=== PATIENT | male | born 1945 | race Caucasian/White ===

== ENCOUNTER → 2017-09-22 | Outpatient (CLI) | payer OTHER, MEDICARE | LOC: BHFA 11:30 | PROVIDERS: ATTEND Internal Medicine Cardiovascular Disease | DX: R06.02 Shortness of breath (principal) ==

== ENCOUNTER → 2017-09-25 | Outpatient (CLI) | payer OTHER, MEDICARE | LOC: BHFA 15:30 | PROVIDERS: ATTEND Internal Medicine Interventional Cardiology | DX: R60.9 Edema, unspecified (principal) ==

== ENCOUNTER → 2017-10-20 | Outpatient (CLI) | payer OTHER, MEDICARE | LOC: BHFA 09:00 | PROVIDERS: ATTEND Internal Medicine Cardiovascular Disease | DX: I25.10 Atherosclerotic heart disease of native coronary artery without angina pectoris (principal) | CPT/HCPCS: 78452; 93017; A9500 ==

== ENCOUNTER 2018-10-06 14:30 | Inpatient (IN) | payer OTHER, MEDICARE ==
[~2018-10-06 14:30] MED LIST: IOPAMIDOL (ISOVUE-300) 100 ML BTL ONE
[2018-10-06] MEDS ORDERED: NS 1,000 ML IV ONE (15:12)
--- NOTE | 2018-10-06 15:12 | EDPHY ---
H & P Stated Complaint: N/V Time Seen by Provider: 10/06/18 15:00 HPI/ROS: CHIEF COMPLAINT: Vomiting, acute renal failure HISTORY OF PRESENT ILLNESS: The patient is referred to the emergency department from the acute care nurse practitioner secondary to acute renal failure. The patient has a history of mild ulcerative colitis and reported history of sprue. The patient has had decreased appetite and nausea for the past month. The patient saw Gastroenterology head was noted to have acute renal failure. The patient does have a history of BPH but denies urinary symptoms. He reports what he perceives to be normal urine output. Patient takes no medications for high blood pressure. He denies prior history of renal disease. The patient does report weight loss and early satiety. REVIEW OF SYSTEMS: A comprehensive 10 point review of systems is otherwise negative aside from elements mentioned in the history of present illness. Source: Patient Exam Limitations: No limitations - Medical/Surgical History Other PMH: ulcerative colitis , IBS, low testosterone/protein, adrenal fatigue, severe wheat allergy, osteoporosis , hypo thyroidism, BPH, CAD, shingles - Social History Smoking Status: Never smoked - Physical Exam Exam: General Appearance: Thin male, no acute distress Eyes: Pupils equal and round no pallor or injection ENT, Mouth: Mucous membranes moist Respiratory: There are no retractions, lungs are clear to auscultation Cardiovascular: Regular rate and rhythm Gastrointestinal: Abdomen is soft and nontender, no masses, bowel sounds normal Neurological: 5/5 strength all 4 extremities Skin: Warm and dry, no rashes Musculoskeletal: Neck is supple nontender Extremities: symmetrical, full range of motion Constitutional: Initial Vital Signs Temperature (C) 36.6 C 10/06/18 14:32 Heart Rate 54 L 10/06/18 14:32 Respiratory Rate 16 10/06/18 14:32 Blood Pressure 128/76 H 10/06/18 14:32 O2 Sat (%) 96 10/06/18 14:32 O2 Delivery Mode Room Air Allergies/Adverse Reactions: No Known Allergies Allergy (Unverified 10/06/18 14:32) Home Medications: Medication Instructions Recorded Acetaminophen [Tylenol 325mg (*)] 650 mg PO DAILY PRN 10/06/18 Baclofen/Cyclo 1 supp UT Q3D@21 10/06/18 Cholecalciferol Vit D3 [Vitamin D3 10,000 units PO DAILY 10/06/18 (*)] Compounded Cream 1 elie TP DAILY 10/06/18 Cyanocobalamin [Vitamin B12 (*)] 5,000 mcg PO DAILY 10/06/18 Denosumab [Prolia] 60 mg SQ Q180D 10/06/18 Dicyclomine [Bentyl 20 MG (*)] 20 mg PO DAILY PRN 10/06/18 Herbals/Supplements -Info Only 1 ea PO DAILY 10/06/18 Ibuprofen [Motrin (*)] 200 mg PO DAILY PRN 10/06/18 Levothyroxine [Synthroid 75 mcg 75 mcg PO DAILY06 10/06/18 (*)] Lipase 24,000/Amylase/Protease 1 cap PO 5XD 10/06/18 [Creon 24 (*)] Ondansetron Odt [Zofran Odt 4 mg 4 mg PO Q4 10/06/18 (*)] Pantoprazole Sodium [Protonix 40mg 40 mg PO DAILY 10/06/18 (*)] Rapaflow 3 mg PO EVERY OTHER DAY 10/06/18 metroNIDAZOLE 0.75% [Metrocream 1 elie TP EVERY OTHER DAY 10/06/18 0.75% (RX)] Medical Decision Making ED Course/Re-evaluation: Patient had an IV established. The patient is hemodynamically stable. He received a L of normal saline. The patient provided both a urine and stool sample. Patient's creatinine is noted to be 2.3. Dr. Medina contacted the emergency department and requested the patient be admitted to the hospitalist service. They do plan to do endoscopy tomorrow. Bladder scan has been ordered after urination in the ED. Consultation was made with the hospitalist service. The patient will be admitted by Dr. Dueñas. 4:15 p.m.: Patient's bladder scan demonstrates no evidence of acute urinary retention. The patient is receiving IV fluids for acute renal failure. Differential Diagnosis: Differential diagnosis considered includes acute renal failure, hyperkalemia, upper GI bleed, lower GI bleed, intra-abdominal malignancy. - Data Points Laboratory Results: Laboratory Results 10/06/18 15:07 10/06/18 15:07 10/06/18 10/06/18 10/06/18 15:07 15:07 11:50 WBC 5.44 10^3/uL 10^3/uL (3.80-9.50) RBC 3.78 10^6/uL L 10^6/uL (4.40-6.38) Hgb 12.8 g/dL L g/dL (13.7-17.5) Hct 38.0 % L % (40.0-51.0) MCV 100.5 fL H fL (81.5-99.8) MCH 33.9 pg pg (27.9-34.1) MCHC 33.7 g/dL g/dL (32.4-36.7) RDW 12.6 % % (11.5-15.2) Plt Count 246 10^3/uL 10^3/uL (150-400) MPV 11.0 fL fL (8.7-11.7) Neut % (Auto) 67.2 % % (39.3-74.2) Lymph % (Auto) 19.3 % % (15.0-45.0) [place] % (Auto) 10.5 % % (4.5-13.0) Eos % (Auto) 2.0 % % (0.6-7.6) Baso % (Auto) 0.6 % % (0.3-1.7) Nucleat RBC Rel Count 0.0 % % (0.0-0.2) Absolute Neuts (auto) 3.66 10^3/uL 10^3/uL (1.70-6.50) Absolute Lymphs (auto) 1.05 10^3/uL 10^3/uL (1.00-3.00) Absolute Monos (auto) 0.57 10^3/uL 10^3/uL (0.30-0.80) Absolute Eos (auto) 0.11 10^3/uL 10^3/uL (0.03-0.40) Absolute Basos (auto) 0.03 10^3/uL 10^3/uL (0.02-0.10) Absolute Nucleated RBC 0.00 10^3/uL 10^3/uL (0-0.01) Immature Gran % 0.4 % % (0.0-1.1) Immature Gran # 0.02 10^3/uL 10^3/uL (0.00-0.10) Sodium 132 mEq/L L mEq/L (135-145) Potassium 3.9 mEq/L mEq/L (3.5-5.2) Chloride 96 mEq/L L mEq/L (97-110) Carbon Dioxide 24 mEq/l mEq/l (22-31) Anion Gap 12 mEq/L mEq/L (6-14) BUN 31 mg/dL H mg/dL (7-23) Creatinine 2.3 mg/dL H mg/dL (0.7-1.3) POC Creatinine 2.8 mg/dL H mg/dL (0.7-1.3) Estimated GFR 28 Glucose 67 mg/dL L mg/dL (70-100) Calcium 9.9 mg/dL mg/dL (8.5-10.4) Total Bilirubin 1.0 mg/dL mg/dL (0.1-1.4) Conjugated Bilirubin 0.4 mg/dL mg/dL (0.0-0.5) Unconjugated Bilirubin 0.6 mg/dL mg/dL (0.0-1.1) AST 34 IU/L IU/L (17-59) ALT 20 IU/L L IU/L (21-72) Alkaline Phosphatase 62 IU/L IU/L (38-126) Total Protein 6.3 g/dL g/dL (6.3-8.2) Albumin 3.6 g/dL g/dL (3.5-5.0) Lipase 129 IU/L IU/L (23-300) 10/06/18 10/06/18 11:44 11:34 WBC RBC Hgb Hct MCV MCH MCHC RDW Plt Count MPV Neut % (Auto) Lymph % (Auto) [place] % (Auto) Eos % (Auto) Baso % (Auto) Nucleat RBC Rel Count Absolute Neuts (auto) Absolute Lymphs (auto) Absolute Monos (auto) Absolute Eos (auto) Absolute Basos (auto) Absolute Nucleated RBC Immature Gran % Immature Gran # Sodium Potassium Chloride Carbon Dioxide Anion Gap BUN Creatinine POC Creatinine TNP 2.7 mg/dL H mg/dL (0.7-1.3) Estimated GFR Glucose Calcium Total Bilirubin Conjugated Bilirubin Unconjugated Bilirubin AST ALT Alkaline Phosphatase Total Protein Albumin Lipase Medications Given: Discontinued Medications Sodium Chloride (Ns) 1,000 mls @ 0 mls/hr IV EDNOW ONE; Wide Open PRN Reason: Protocol Stop: 10/06/18 15:13 Last Admin: 10/06/18 15:25 Dose: 1,000 mls Point of Care Test Results: Chemistry 10/06/18 10/06/18 10/06/18 11:50 11:44 11:34 POC Creatinine 2.8 mg/dL H mg/dL TNP 2.7 mg/dL H mg/dL (0.7-1.3) (0.7-1.3) Departure - Departure Disposition: [facility] Acute Clinical Impression: Acute renal failure (ARF), Dehydration, Early satiety, Ulcerative colitis Condition: Good
[2018-10-06 15:26] LABS: PLATELET COUNT 246 10^3/uL (150-400)
[2018-10-06] MEDS ORDERED: ACETAMINOPHEN 325 MG TAB PO PRN (16:12)
[2018-10-06] MEDS ORDERED: ONDANSETRON DISINTEGRATING 4 MG TAB PO PRN (16:12)
[2018-10-06] MEDS ORDERED: ONDANSETRON 4 MG/2 ML VIAL IVP PRN (16:12)
--- NOTE | 2018-10-06 17:25 | PDGENHP ---
History and Physical - Chief Complaint Elevated Cr, Nausea - History of Present Illness Stanley Owen is a 73 yo M with a PMHx of remote hx of UC, hypothyroidism, hypogonadism who presents to [facility] for nausea, vomiting, and elevated Cr. He reports that for the past month he has had decreased appetite and PO intake due to nausea. For the past few days, he reports barely being able to drink water without experiencing significant nausea. He has lost 7 lbs in past month due to this. He denies any night sweats. He denies dysphagia, abdominal pain, constipation. He reports having episode of diarrhea earlier today thought to be due to PO contrast for CT but none previously. He was scheduled to have outpatient EGD on 10/20 with of the [facility] for further evaluation. He was sent for a CT scan w/ IVC however Cr was found to be 2.8 and noncontrasted study was ordered. History Information - Allergies/Home Medication List Allergies/Adverse Reactions: No Known Allergies Allergy (Unverified 10/06/18 14:32) Home Medications: Acetaminophen [Tylenol 325mg (*)] 650 mg PO DAILY PRN 10/06/18 [Last Taken Unknown] Baclofen/Cyclo 1 supp PA Q3D@21 10/06/18 [Last Taken Unknown] Cholecalciferol Vit D3 [Vitamin D3 (*)] 10,000 units PO DAILY 10/06/18 [Last Taken 10/05/18] Compounded Cream 1 elie TP DAILY 10/06/18 [Last Taken 10/05/18] Cyanocobalamin [Vitamin B12 (*)] 5,000 mcg PO DAILY 10/06/18 [Last Taken ] Denosumab [Prolia] 60 mg SQ Q180D 10/06/18 [Last Taken Unknown] Dicyclomine [Bentyl 20 MG (*)] 20 mg PO DAILY PRN 10/06/18 [Last Taken Unknown] Herbals/Supplements -Info Only 1 ea PO DAILY 10/06/18 [Last Taken 10/05/18] Ibuprofen [Motrin (*)] 200 mg PO DAILY PRN 10/06/18 [Last Taken Unknown] Levothyroxine [Synthroid 75 mcg (*)] 75 mcg PO DAILY06 10/06/18 [Last Taken ] Lipase 24,000/Amylase/Protease [Creon 24 (*)] 1 cap PO 5XD 10/06/18 [Last Taken 10/04/18] Ondansetron Odt [Zofran Odt 4 mg (*)] 4 mg PO Q4 10/06/18 [Last Taken 10/06/18 06:00] Pantoprazole Sodium [Protonix 40mg (*)] 40 mg PO DAILY 10/06/18 [Last Taken ] Rapaflow 3 mg PO EVERY OTHER DAY 10/06/18 [Last Taken Unknown] metroNIDAZOLE 0.75% [Metrocream 0.75% (RX)] 1 elie TP EVERY OTHER DAY 10/06/18 [ Last Taken Unknown] I have personally reviewed and updated: family history, medical history, social history, surgical history - Past Medical History Additional medical history: Hypothyroidism, Hypogonadism - Surgical History Reports: no pertinent surgical hx - Family History Positive for: non-pertinent - Social History Smoking Status: Never smoked Review of Systems Review of Systems: ROS: 10pt was reviewed & negative except for what was stated in HPI & below Physical Exam Physical Exam: Temp Pulse Resp BP Pulse Ox 36.6 C 60 18 122/70 H 97 10/06/18 14:32 10/06/18 16:00 10/06/18 16:00 10/06/18 16:00 10/06/18 16:00 Constitutional: no apparent distress Eyes: PERRL Ears, Nose, Mouth, Throat: moist mucous membranes Cardiovascular: regular rate and rhythym Respiratory: no respiratory distress Gastrointestinal: normoactive bowel sounds, soft, non-tender abdomen Skin: warm Musculoskeletal: full muscle strength Neurologic: AAOx3 Psychiatric: interacting appropriately Lab Data & Imaging Review 10/06/18 15:07 10/06/18 15:07 WBC 5.44 10^3/uL (3.80-9.50) 10/06/18 15:07 RBC 3.78 10^6/uL (4.40-6.38) L 10/06/18 15:07 Hgb 12.8 g/dL (13.7-17.5) L 10/06/18 15:07 Hct 38.0 % (40.0-51.0) L 10/06/18 15:07 MCV 100.5 fL (81.5-99.8) H 10/06/18 15:07 MCH 33.9 pg (27.9-34.1) 10/06/18 15:07 MCHC 33.7 g/dL (32.4-36.7) 10/06/18 15:07 RDW 12.6 % (11.5-15.2) 10/06/18 15:07 Plt Count 246 10^3/uL (150-400) 10/06/18 15:07 MPV 11.0 fL (8.7-11.7) 10/06/18 15:07 Neut % (Auto) 67.2 % (39.3-74.2) 10/06/18 15:07 Lymph % (Auto) 19.3 % (15.0-45.0) 10/06/18 15:07 [place] % (Auto) 10.5 % (4.5-13.0) 10/06/18 15:07 Eos % (Auto) 2.0 % (0.6-7.6) 10/06/18 15:07 Baso % (Auto) 0.6 % (0.3-1.7) 10/06/18 15:07 Nucleat RBC Rel Count 0.0 % (0.0-0.2) 10/06/18 15:07 Absolute Neuts (auto) 3.66 10^3/uL (1.70-6.50) 10/06/18 15:07 Absolute Lymphs (auto) 1.05 10^3/uL (1.00-3.00) 10/06/18 15:07 Absolute Monos (auto) 0.57 10^3/uL (0.30-0.80) 10/06/18 15:07 Absolute Eos (auto) 0.11 10^3/uL (0.03-0.40) 10/06/18 15:07 Absolute Basos (auto) 0.03 10^3/uL (0.02-0.10) 10/06/18 15:07 Absolute Nucleated RBC 0.00 10^3/uL (0-0.01) 10/06/18 15:07 Immature Gran % 0.4 % (0.0-1.1) 10/06/18 15:07 Immature Gran # 0.02 10^3/uL (0.00-0.10) 10/06/18 15:07 Sodium 132 mEq/L (135-145) L 10/06/18 15:07 Potassium 3.9 mEq/L (3.5-5.2) 10/06/18 15:07 Chloride 96 mEq/L (97-110) L 10/06/18 15:07 Carbon Dioxide 24 mEq/l (22-31) 10/06/18 15:07 Anion Gap 12 mEq/L (6-14) 10/06/18 15:07 BUN 31 mg/dL (7-23) H 10/06/18 15:07 Creatinine 2.3 mg/dL (0.7-1.3) H 10/06/18 15:07 POC Creatinine 2.8 mg/dL (0.7-1.3) H 10/06/18 11:50 Estimated GFR 28 10/06/18 15:07 Glucose 67 mg/dL (70-100) L 10/06/18 15:07 Serum Osmolality 292 mosmo/kg (280-297) 10/06/18 15:07 Calcium 9.9 mg/dL (8.5-10.4) 10/06/18 15:07 Total Bilirubin 1.0 mg/dL (0.1-1.4) 10/06/18 15:07 Conjugated Bilirubin 0.4 mg/dL (0.0-0.5) 10/06/18 15:07 Unconjugated Bilirubin 0.6 mg/dL (0.0-1.1) 10/06/18 15:07 AST 34 IU/L (17-59) 10/06/18 15:07 ALT 20 IU/L (21-72) L 10/06/18 15:07 Alkaline Phosphatase 62 IU/L (38-126) 10/06/18 15:07 Total Protein 6.3 g/dL (6.3-8.2) 10/06/18 15:07 Albumin 3.6 g/dL (3.5-5.0) 10/06/18 15:07 Lipase 129 IU/L (23-300) 10/06/18 15:07 Ur Random Creatinine 101.1 mg/dL 10/06/18 15:16 Ur Random Sodium 23 mEq/L (30-90) L 10/06/18 15:16 Assessment & Plan Assessment: Acute renal failure (ARF) (Acute) - Cr 2.8 earlier today, 2.3 on admission - Likely prerenal in setting of significantly decreased PO intake - S/p 1L IVF in ED, will continue mIVF overnight @ 150 ml/hr - FENa ordered - CT scan from earlier today shows normal kidneys, no hydronephrosis/hydroureter - Will order UA as well - Continue to monitor BMP, I/O, avoid nephrotoxic agents - If not improving overnight with IVF, consult Nephrology in the AM Nausea - Duration 1 month with PO intake - Denies dysphagia - Following with GI of the [facility] - Plan for EGD in the AM for further evaluation, unsure if plan for colonoscopy as well (patient and would like both to be performed at same time) - NPO at midnight - Anti-emetics PRN - IVF overnight as above Hyponatremia - Na 132 on admission - In setting of decreased PO intake - IVF as above - Repeat Na in the AM, avoid overcorrection (>8 meq in 24 hours) Hypothyroidism - Continue home Synthroid Hypogonadism - Continue home Testostetone FEN: IVF, NPO at midnight Code: FULL DVT PPx: SubQ Heparin Dispo: Admit to Medicine
[2018-10-06] MEDS ORDERED: DICYCLOMINE 20 MG TAB PO PRN (17:31)
[2018-10-06] MEDS: NS 1,000 ML IV SCH ×2 (17:36→21:26)
[2018-10-06] MEDS ORDERED: LIPASE 24,000/AMYLASE/PROTEASE (CREON) 1 CAP PO PRN (17:40)
[2018-10-06] MEDS ORDERED: LIPASE 24,000/AMYLASE/PROTEASE (CREON) 1 CAP PO SCH (18:00)
[2018-10-06] MEDS: LIPASE 24,000/AMYLASE/PROTEASE (CREON) 1 CAP PO SCH (19:12)
[2018-10-06] MEDS ORDERED: BACLOFEN PR SCH (21:00)
[2018-10-06] MEDS ORDERED: CYCLO PR SCH (21:00)
[2018-10-06] MEDS: HEPARIN 5,000 UNIT/0.5 ML INJ SC SCH (21:25)
[2018-10-07] MEDS: HEPARIN 5,000 UNIT/0.5 ML INJ SC SCH ×3 (05:27→21:24)
[2018-10-07] MEDS: NS 1,000 ML IV SCH ×3 (05:27→18:38)
[2018-10-07] MEDS: LEVOTHYROXINE 75 MCG TAB PO SCH (05:27)
[2018-10-07] MEDS: CHOLECALCIFEROL VIT D3 2,000 UNITS TAB/CAP PO SCH (08:02)
[2018-10-07] MEDS: PANTOPRAZOLE SODIUM 40 MG TAB PO SCH (08:04)
[2018-10-07] MEDS: LIPASE 24,000/AMYLASE/PROTEASE (CREON) 1 CAP PO SCH ×3 (08:10→17:23)
[2018-10-07] MEDS ORDERED: CHOLECALCIFEROL VIT D3 1,000 UNITS TAB PO SCH (09:00)
--- NOTE | 2018-10-07 11:32 | HOSPPROG ---
Hospitalist Progress Note Assessment/Plan: 73 yo M w remote UC, colonic stricture here w 1 monyh nauasea and MARGARITA MARGARITA: suspected pre renal w subsequent ATN (low Rogelio, history) continue IVF support follow bid this precludes colon prep nausea: ct unremarkable for cause (images inter by me) mild anemia noted ? PUD w GOO needs egd proph: sc heparin colonic stricture: unlikely cause of currrent situation dispo: inpt Subjective: case dw dr bautista. 's ?'s answered Objective: Vital Signs Temp Pulse Resp BP Pulse Ox 36.6 C 54 L 14 105/63 97 10/07/18 07:56 10/07/18 07:56 10/07/18 07:56 10/07/18 07:56 10/07/18 07:56 Laboratory Results 10/07/18 04:33 10/06/18 10/07/18 10/08/18 05:59 05:59 05:59 Output Total 100 Balance -100 - Physical Exam Constitutional: no apparent distress, appears nourished Eyes: PERRL, anicteric sclera Ears, Nose, Mouth, Throat: moist mucous membranes, hearing normal Cardiovascular: regular rate and rhythym, no murmur, rub, or gallop, No tachycardia Respiratory: no respiratory distress, no rales or rhonchi Gastrointestinal: normoactive bowel sounds, soft, non-tender abdomen, no palpable masses, No guarding, No rebound Genitourinary: no bladder fullness, No barton in urethra Skin: warm, normal color, no induration Musculoskeletal: full muscle strength ICD10 Worksheet Patient Problems: Problems Problem Status Onset Acute renal failure (ARF) Acute Dehydration Acute Early satiety Acute Ulcerative colitis Acute
--- NOTE | 2018-10-07 14:24 | PDMN ---
Medical Necessity Medical necessity: Pt meets IP criteria per & KASEY M-326; est los >2 mn for eval/tx of acute renal failure w/hyponatremia & decreased PO intake w/ongoing nausea; requiring further workup/monitoring & aggressive IVFs (150 mls/hr); H&P & order 10/06/17
--- NOTE | 2018-10-07 14:49 | ASMTCMCOM ---
CM Note CM Note Notes: 10/07/2018 Case Management Note Pt admitted for dehydration and renal failure. There are no therapy evals ordered at this time. Met w/pt and S[place] [phone] (cell). Preferred phone number is the home number [phone]. Pt lives independently with his in his own home. They have not needed to hire out housekeeping or lawn care yet. Both are able to drive and both cook meals. Pt has not needed a home care agency or had a stay in a correction facility in the past. PCP is dr. Dasia Chopra with [facility]. Case Management d/c poc: independent with follow up as directed. Case Management available if needs change. Date Signed: 10/07/2018 02:48 PM Electronically Signed By:Michelle Fonseca RN
--- NOTE | 2018-10-07 17:09 | PDCONSULT ---
Healthcare Applications Analyst Note: [email or web address] p: f: REFERRING PHYSICIAN: I was asked to see the patient in consultation by Dr. Juan Gayle for a chief complaint of decreased appetite, early satiety, nausea. HISTORY OF PRESENT ILLNESS: Stanley Owen is a 73-year-old male with untreated inflammatory bowel disease (Ulcerative jejunitis vs small bowel Crohns disease and/or colitis) presenting with acute kidney injury. A pre-CT scan creatinine was noted to be newly elevated at 2.8 and he was admitted for acute renal insufficiency and being treated as such. He is a patient of Dr. Sacha Medina and was recently seen on 09/27/2018 for a myriad of symptoms that included loss of appetite, 10 pound weight loss, nausea , vomiting, increased belching and continued diarrhea. He endorses being given a diagnosis of ulcerative colitis in 1970 and was initially treated with steroids but currently treat all of his symptoms with supplements. He also has a variety of food allergies for which she avoids eating these foods as spicy foods really increase his symptoms. The patient has had several years of being investigated for his symptoms and has seen multiple different physicians including being evaluated at the [facility] for enteroscopy. Additionally he has had an ascending colonic stricture from this chronic colitis which intermittently causes him pain. PAST MEDICAL HISTORY: Hypothyroidism, hypogonadism, inflammatory bowel disease PAST SURGICAL HISTORY: None HOME MEDICATIONS: Pantoprazole 40 mg daily, odynophagia Victorino as needed Creon capsules unspecified dose, Synthroid 75 g daily, ibuprofen 200 mg by mouth daily when necessary, dicyclomine 20 mg by mouth daily when necessary, several herbal supplements INPATIENT MEDICATIONS: Pantoprazole 40 mg daily, Zofran 4 mg every 4 when necessary nausea, Creon 1 capsule 3 times a day meal, Synthroid 75 g by mouth daily, dicyclomine 20 mg by mouth daily when necessary, cholecalciferol 10,000 units by mouth daily ALLERGIES: Wheat, milk, opinion, tomato FAMILY HISTORY: No family history of colitis SOCIAL HISTORY no Tobacco use no Alcohol use ROS I have performed a comprehensive review of systems, which is negative except for pertinent positives and/or pertinent negatives as noted above in the HPI Physical exam: BMI 17 Sefrhq20.6 HR 60 RR 18 BP 122/70 97% on RA CONSTITUTIONAL: alert, unwell appearing, in no distress MENTAL STATUS: alert, oriented to person, place and time PSYCH: mood appropriate for affect EYES: pupils equal and reactive extra ocular eye movements intact EARS: right and left ear normal NOSE: normal and patent, no erythema, discharge or polyps MOUTH: mucous membranes moist, pharynx normal without lesions, Mallampati I HEAD: normal NECK: supple, no significant adenopatchy CHEST: clear to auscultation, no wheezes, rales or rhonchi, symmetric air entry CARDIOVASCULAR: normal rate, regular rhythm, normal S1,S2, no murmurs, rubs, clicks or gallops GASTROINTESTINAL: soft, non tender, non distended, no masses or organomegaly NEUROLOGICAL: alert, oriented, normal speech, no focal findings or movement disorder noted. No asterixis. MUSCULOSKELETAL: no joint tenderness, deformity or swelling SKIN: normal coloration and turgor, no rashes, no suspicious skin lesions CURRENT DATA: LABS: Date 10/06/2018 CBC: WBC 5 hemoglobin 12 platelets 246 Date 10/06/2018 point of care creatinine 2.8 Date 10/07/2018 BMP sodium 137 potassium 3.8U and 25 creatinine 2 glucose 113 Date 09/29/2018 Fecal Protection 40 CRP less than 5 ESR 19 Reviewed a [facility] IBD serology from 01/31/2010 that was most consistent with Crohn's disease IMAGING: Date 10/06/2018 CT scan of the abdomen without IV contrast, oral contrast was received the visualized colon and small bowel are normal in caliber without obstruction and no pericolonic fat stranding is visualized. No evidence of acute abnormality by this noncontrast technique. There is a nonobstructing calculi in the right lower pole of the right kidney ENDOSCOPY: Reviewed a report from [facility] from date 03/05/2010 where an upper enteroscopy was performed showing potentially an ulcerative jejunitis. ASSESSMENT: Stanley Owen is a 73-year-old malnourished appearing male with untreated inflammatory bowel disease (ulcerative jejunitis vs small bowel Crohn' s disease and/or colitis) presenting with acute kidney injury. Acute kidney injury is likely a prerenal state related to his lack of by mouth intake from nausea, early satiety, epigastric pain. The acute kidney injury could be due to fat malabsorption as well (fat binds to calcium leaving oxalate to be absorbed and deposited in the kidney). We discussed performing an upper endoscopy for further evaluation of these symptoms, especially to see if there are still ulcers in the proximal duodenal/jejunum. I would not advise to colonoscopy at this point due to the colonic preparation potentially causing more dehydration. Depending on the results of the upper endoscopy and his symptom management he could still have his colonoscopy that is scheduled on 2018 with . RECOMMENDATIONS: -Keep patient NPO. Ensure large bore IV access. -Will plan on endoscopy/enteroscopy tomorrow am further recommendations to follow. -If endoscopy shows a continue ulcerative jejunitis picture this MARGARITA could be in part from malnourishment hyperoxaluria which can lead to a CKD -Thank you for this consultation Sincerely, Angélica William MD [facility]
[2018-10-08] MEDS: D5W 1/2 NS 1,000 ML IV SCH ×3 (00:22→21:22)
[2018-10-08] MEDS: HEPARIN 5,000 UNIT/0.5 ML INJ SC SCH ×3 (05:31→21:22)
[2018-10-08 05:45] LABS: PLATELET COUNT 161 10^3/uL (150-400)
--- NOTE | 2018-10-08 06:12 | PDGENHP ---
History & Physical Chief Complaint: nausea, epigastric pain, early satiety, weight loss History of Present Illness: 73 year old male with IBD? presenting with anorexia , weight loss, nausea. Relevant Physical Exam: Alert and oriented x 3, MM moist, Mallampati 1, Abdomen soft mildly tender in epigastric region, Thin appearance Cardiorespiratory Assessment: RRR, CTAB, ASA III
[2018-10-08] MEDS: LEVOTHYROXINE 75 MCG TAB PO SCH (06:17)
[2018-10-08] MEDS: CHOLECALCIFEROL VIT D3 2,000 UNITS TAB/CAP PO SCH (07:20)
[2018-10-08] MEDS: LIPASE 24,000/AMYLASE/PROTEASE (CREON) 1 CAP PO SCH ×3 (07:21→17:55)
[2018-10-08] MEDS: PANTOPRAZOLE SODIUM 40 MG TAB PO SCH (07:22)
[2018-10-08] MEDS ORDERED: METRONIDAZOLE 0.75% 45 GM CREAM TP SCH (09:00)
[2018-10-08] MEDS ORDERED: NS 1,000 ML IV ONE (09:19)
--- NOTE | 2018-10-08 10:48 | PDANEPAE ---
ANE History of Present Illness history of long standing inflammatory bowel disease that has been treated with suplements and now presents with weight loss and early satiety. Here for upper and lower scopes ANE Past Medical History - Cardiovascular History Hx Hypertension: No Hx Arrhythmias: No Hx Chest Pain: No Hx Coronary Artery / Peripheral Vascular Disease: No - Pulmonary History Hx COPD: No Hx Oxygen in Use at Home: No Hx Sleep Apnea: Yes Sleep Apnea Screening Result - Last Documented: Positive - Endocrine History Hx Diabetes: No Hypothyroid: No Hyperthyroid: No - Renal History Hx Renal Disorders: Yes Renal History Comment: MARGARITA probanly secondary to malnourishment and chronic bowel disease - Liver History Hx Hepatic Disorders: No - GI History GERD: moderate Hx Gastrointestinal Disorders: Yes Gastrointestinal History Comment: long standing inflammatory bowel disease treated with herbal supplements. recent MARGARITA, weight loss and satiety - Chronic Pain History Chronic Pain: No ANE Review of Systems Review of Systems: ANE Patient History - Allergies Allergies/Adverse Reactions: wheat Allergy (Severe, Verified 10/06/18 18:20) Abdominal Cramping, diarrhea, nausea Milk Containing Products [dairy] Allergy (Intermediate, Verified 10/06/18 18:22) Abdominal Cramping onion Allergy (Intermediate, Verified 10/06/18 18:22) Abdominal Cramping tomato Allergy (Intermediate, Verified 10/06/18 18:21) Abdominal Cramping - Home Medications Home Medications: Acetaminophen [Tylenol 325mg (*)] 650 mg PO DAILY PRN 10/06/18 [Last Taken Unknown] Cholecalciferol Vit D3 [Vitamin D3 (*)] 10,000 units PO DAILY 10/06/18 [Last Taken 10/05/18] Compounded Cream 1 elie TP DAILY 10/06/18 [Last Taken 10/05/18] Cyanocobalamin [Vitamin B12 (*)] 5,000 mcg PO DAILY 10/06/18 [Last Taken ] Denosumab [Prolia] 60 mg SQ Q180D 10/06/18 [Last Taken Unknown] Dicyclomine [Bentyl 20 MG (*)] 20 mg PO DAILY PRN 10/06/18 [Last Taken Unknown] Herbals/Supplements -Info Only 1 ea PO DAILY 10/06/18 [Last Taken 10/05/18] Ibuprofen [Motrin (*)] 200 mg PO DAILY PRN 10/06/18 [Last Taken Unknown] Levothyroxine [Synthroid 75 mcg (*)] 75 mcg PO DAILY06 10/06/18 [Last Taken ] Lipase 24,000/Amylase/Protease [Creon 24 (*)] 1 cap PO 5XD 10/06/18 [Last Taken 10/04/18] Ondansetron Odt [Zofran Odt 4 mg (*)] 4 mg PO Q4 10/06/18 [Last Taken 10/06/18 06:00] Pantoprazole Sodium [Protonix 40mg (*)] 40 mg PO DAILY 10/06/18 [Last Taken ] Rapaflow 3 mg PO EVERY OTHER DAY 10/06/18 [Last Taken Unknown] metroNIDAZOLE 0.75% [Metrocream 0.75% (RX)] 1 elie TP EVERY OTHER DAY 10/06/18 [ Last Taken Unknown] - NPO status NPO Since - Liquids (Date): 10/07/18 NPO Since - Liquids (Time): 00:00 NPO Since - Solids (Date): 10/06/18 NPO Since - Solids (Time): 10:00 - Smoking Hx Smoking Status: Never smoked ANE Labs/Vital Signs - Labs Result Diagrams: 10/08/18 04:38 10/08/18 04:46 - Vital Signs Blood Pressure: 112/65 Heart Rate: 46 Respiratory Rate: 14 O2 Sat (%): 94 Height: 168.91 cm Weight: 49.895 kg ANE Physical Exam - Airway Neck exam: FROM Mallampati Score: Class 1 Mouth exam: normal dental/mouth exam - Pulmonary Pulmonary: no respiratory distress, no rales or rhonchi - Cardiovascular Cardiovascular: regular rate and rhythym, no murmur, rub, or gallop - ASA Status ASA Status: III ANE Anesthesia Plan Anesthesia Plan: GA with mask Total IV Anesthesia: Yes
[2018-10-08] MEDS ORDERED: LIDOCAINE 2% 100 MG/5 ML SYR ONE (10:49)
[2018-10-08] MEDS ORDERED: fentaNYL 100 MCG/2 ML INJ ONE (10:49)
[2018-10-08] MEDS ORDERED: PROPOFOL/EMULSION 500 MG/50 ML BOTTLE IV ONE (10:49)
[2018-10-08] MEDS ORDERED: PROPOFOL 200 MG/20 ML VIAL ONE (11:30)
[2018-10-08] MEDS ORDERED: fentaNYL 100 MCG/2 ML INJ IVP PRN (11:41)
[2018-10-08] MEDS ORDERED: MEPERIDINE 25 MG/0.5 ML AMP IVP PRN (11:41)
[2018-10-08] MEDS ORDERED: DEXAMETHASONE 4 MG/ML VIAL IVP PRN (11:41)
[2018-10-08] MEDS ORDERED: NALOXONE HCL 0.4 MG/ML INJ IVP PRN (11:41)
[2018-10-08] MEDS ORDERED: HYDROCODONE/APAP 5/325 TAB PO PRN (11:41)
--- NOTE | 2018-10-08 11:55 | GIREPORT ---
[facility] - Endoscopy Department Patient Name: SHANNON BARRIENTOS Procedure Date: 10/08/2018 11:08 AM Patient Type: Inpatient Attending MD/ ER Physician: Angélica Bautista MD Procedure: Small bowel enteroscopy Indications: Anorexia, Clinically significant diarrhea of unexplained origin, Nausea , Weight loss Providers: Angélica Bautista MD Medicines: Monitored Anesthesia Care Complications: No immediate complications. Description of Procedure: After obtaining informed consent, the endoscope was passed under direct vision. Throughout the procedure, the patient's blood pressure, pulse, and oxygen saturations were monitored continuously. The Colonoscope was introduced through the mouth, and advanced to the proximal jejunum. Aft er obtaining informed consent, the endoscope was passed under direct visio n. Throughout the procedure, the patient's blood pressure, pulse, and oxyg en saturations were monitored continuously.The upper GI endoscopy was accomplished without difficulty. The patient tolerated the procedure we ll. Findings: The examined esophagus was normal. Biopsies were taken with a cold [facility] eps for histology. Estimated blood loss was minimal. The Z-line was regular and was found 40 cm from the incisors. The gastroesophageal flap valve was visualized endoscopically and class ified as Hill Grade I (prominent fold, tight to endoscope). Diffuse minimal inflammation characterized by erythema was found in the entire examined stomach. Biopsies were taken with a cold forceps for histology. Estimated blood loss was minimal. There was no evidence of significant pathology in the duodenal bulb, in the first portion of the duodenum, in the second portion of the duodenum, i n the third portion of the duodenum and in the fourth portion of the duodenum . Biopsies were taken with a cold forceps for histology. Estimated blood loss was minimal. There was no evidence of significant pathology in the proximal jejunum. Biopsies were taken with a cold forceps for histology. Estimated blood loss was minimal. Estimated Blood Loss: Estimated blood loss was minimal. Post Op Diagnosis: - Normal esophagus. Biopsied. - Z-line regular, 40 cm from the incisors. - Gastroesophageal flap valve classified as Hill Grade I (prominent fol d, tight to endoscope). - Gastritis. Biopsied. - Normal duodenal bulb, first portion of the duodenum, second portion o f the duodenum, third portion of the duodenum and fourth portion of the duode num. Biopsied. - The examined portion of the jejunum was normal. Biopsied. Recommendation: - Return patient to hospital [facility] for ongoing care. - Advance to previous diet as tolerated. - Await results of biopsies. - Follow up with Dr. Medina for colonoscopy scheduled on 10/20/2018 - Consider Mirtazapine 15 mg po qhs or qam for nausea and early satiety symptoms. This does not need to be adjusted for renal impairment. - Thank you for allowing me to participate in the care of this patient. Attending Participation: I personally performed the entire procedure. Angélica Bautista MD Angélica Bautista MD 10/08/2018 11:54:37 AM This report has been signed electronicallyAngélica Bautista MD Number of Addenda: 0 Note Initiated On: 10/08/2018 11:08 AM [email or web address]
--- NOTE | 2018-10-08 11:59 | POSTANESTH ---
Post Anesthetic Evaluation Cardiovascular Status: Normal, Stable Respiratory Status: Normal, Stable Level of Consciousness/Mental Status: Can Participate in Eval, Moderately Sleepy Pain Control: Adequate, Prn Tx Ordered Nausea/Vomiting Control: Adequate, Prn Tx Ordered Complications Possibly Related to Anesthesia: None Noted
[2018-10-08] MEDS ORDERED: MIRTAZAPINE 15 MG ODTAB PO ONE (12:51)
--- NOTE | 2018-10-08 15:05 | HOSPPROG ---
Hospitalist Progress Note Assessment/Plan: 73 yo M w remote UC, colonic stricture here w 1 monyh nauasea and MARGARITA MARGARITA: suspected pre renal w subsequent ATN (low Rogelio, history) continue IVF support follow daily this precludes colon prep nausea: ct unremarkable for cause (images inter by me) mild anemia noted egd w no clear cause check non con head ct as elevated icp can cause nausea proph: sc heparin colonic stricture: unlikely cause of currrent situation dispo: inpt Subjective: case d/w bautista. egd unremarkable Objective: Vital Signs Temp Pulse Resp BP Pulse Ox 36.5 C 48 L 16 136/71 H 95 10/08/18 13:13 10/08/18 14:04 10/08/18 14:04 10/08/18 14:04 10/08/18 14:04 Laboratory Results 10/08/18 04:38 10/08/18 04:46 10/07/18 10/08/18 10/09/18 05:59 05:59 05:59 Intake Total 1800 550 Output Total 100 Balance -100 1800 550 - Physical Exam Constitutional: no apparent distress, appears nourished Eyes: PERRL, anicteric sclera Ears, Nose, Mouth, Throat: moist mucous membranes, hearing normal Cardiovascular: regular rate and rhythym, no murmur, rub, or gallop Respiratory: no respiratory distress, no rales or rhonchi Gastrointestinal: normoactive bowel sounds, soft, non-tender abdomen Genitourinary: no bladder fullness, No barton in urethra Skin: warm, normal color Musculoskeletal: full muscle strength Neurologic: AAOx3 ICD10 Worksheet Patient Problems: Problems Problem Status Onset Acute renal failure (ARF) Acute Dehydration Acute Early satiety Acute Ulcerative colitis Acute
--- NOTE | 2018-10-08 19:37 | PDCONSULT ---
Paper Finisher Note: Patient is a 73-year-old male admitted for presumed acute renal failure for which hematology was consulted for anemia. Patient reports she is being worked up for chronic symptoms of nausea and vomiting as well as decreased appetite which is been more progressive over the last few weeks. He was getting the CT scan of the abdomen and pelvis however labs beforehand showed an elevated serum creatinine and he was subsequently admitted for workup and evaluation. Regards to his anemia this was first demonstrated on a CBC from 07/03/2018 his white blood cell count was 4.99 hemoglobin was 12.7 with an MCV of 104.5 platelet count was 246,000. TSH at that time was normal as was B12 and folate level. Transferrin saturation on April 09, 2018 was 78% With a ferritin in June 2017 of 26. Patient was subsequently referred to my partner Koffi June however patient was admitted before he could be evaluated. His CBC on admission showed a white countof 5.44 hemoglobin of 12.8 and a platelet count of 246,000 MCV was 100.5 creatinine was 2.8 EGD in 10/08/2018 which showed mild gastritis. Of note patient is on bevy of [id number] herbs and supplements including oral iron. Is tested negative in the past for serologic evidence of celiac disease in 2008. 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 [facility] Family history: Father with lung cancer mother with pancreatic cancer Review of systems: Complete 12 point review of systems is obtained and found to be negative unless indicated in the history of present illness Physical examination: Temp Pulse Resp BP Pulse Ox 36.8 C 53 L 16 131/80 H 96 10/08/18 19:51 10/08/18 19:51 10/08/18 19:51 10/08/18 19:51 10/08/18 19:51 General: Chronically ill appearing somewhat cachectic appearing male HEENT: Pupils are equal round and reactive to light no scleral icterus or conjunctival pallor is appreciated oral mucosa is moist without any evidence of oral pharyngeal lesions Neck: Supple Cardiovascular: Regular rate and rhythm without rubs thrills gallops or murmurs Chest: Clear to auscultation percussion bilateral posterior lungs Abdomen: Soft nontender nondistended without any hepatosplenomegaly Extremities warm and well perfused asymmetric swelling with the right lower extremity substantially more swollen than the left WBC 2.81 10^3/uL (3.80-9.50) L 10/08/18 04:38 RBC 2.98 10^6/uL (4.40-6.38) L 10/08/18 04:38 Hgb 9.7 g/dL (13.7-17.5) L 10/08/18 04:38 Hct 30.4 % (40.0-51.0) L 10/08/18 04:38 MCV 102.0 fL (81.5-99.8) H 10/08/18 04:38 MCH 32.6 pg (27.9-34.1) 10/08/18 04:38 MCHC 31.9 g/dL (32.4-36.7) L 10/08/18 04:38 RDW 12.7 % (11.5-15.2) 10/08/18 04:38 Plt Count 161 10^3/uL (150-400) 10/08/18 04:38 MPV 11.2 fL (8.7-11.7) 10/08/18 04:38 Neut % (Auto) 55.5 % (39.3-74.2) 10/08/18 04:38 Lymph % (Auto) 28.1 % (15.0-45.0) 10/08/18 04:38 [place] % (Auto) 10.3 % (4.5-13.0) 10/08/18 04:38 Eos % (Auto) 5.0 % (0.6-7.6) 10/08/18 04:38 Baso % (Auto) 0.7 % (0.3-1.7) 10/08/18 04:38 Nucleat RBC Rel Count 0.0 % (0.0-0.2) 10/08/18 04:38 Absolute Neuts (auto) 1.56 10^3/uL (1.70-6.50) L 10/08/18 04:38 Absolute Lymphs (auto) 0.79 10^3/uL (1.00-3.00) L 10/08/18 04:38 Absolute Monos (auto) 0.29 10^3/uL (0.30-0.80) L 10/08/18 04:38 Absolute Eos (auto) 0.14 10^3/uL (0.03-0.40) 10/08/18 04:38 Absolute Basos (auto) 0.02 10^3/uL (0.02-0.10) 10/08/18 04:38 Absolute Nucleated RBC 0.00 10^3/uL (0-0.01) 10/08/18 04:38 Immature Gran % 0.4 % (0.0-1.1) 10/08/18 04:38 Immature Gran # 0.01 10^3/uL (0.00-0.10) 10/08/18 04:38 Absolute Retic 0.010 10^6/uL (0.050-0.117) L 10/08/18 04:38 Percent Retic 0.45 % (0.98-2.67) L 10/08/18 04:38 Sodium 138 mEq/L (135-145) 10/08/18 04:46 Potassium 3.4 mEq/L (3.5-5.2) L 10/08/18 04:46 Chloride 112 mEq/L (97-110) H 10/08/18 04:46 Carbon Dioxide 22 mEq/l (22-31) 10/08/18 04:46 Anion Gap 4 mEq/L (6-14) L 10/08/18 04:46 BUN 23 mg/dL (7-23) 10/08/18 04:46 Creatinine 1.8 mg/dL (0.7-1.3) H 10/08/18 04:46 POC Creatinine 2.8 mg/dL (0.7-1.3) H 10/06/18 11:50 Estimated GFR 37 10/08/18 04:46 Glucose 83 mg/dL (70-100) 10/08/18 04:46 POC Glucose 82 mg/dL (70-100) 10/07/18 17:34 Serum Osmolality 292 mosmo/kg (280-297) 10/06/18 15:07 Calcium 7.7 mg/dL (8.5-10.4) L 10/08/18 04:46 Ferritin 46.8 ng/mL (17.9-464.0) 10/08/18 04:46 Total Bilirubin 1.0 mg/dL (0.1-1.4) 10/06/18 15:07 Conjugated Bilirubin 0.4 mg/dL (0.0-0.5) 10/06/18 15:07 Unconjugated Bilirubin 0.6 mg/dL (0.0-1.1) 10/06/18 15:07 AST 34 IU/L (17-59) 10/06/18 15:07 ALT 20 IU/L (21-72) L 10/06/18 15:07 Alkaline Phosphatase 62 IU/L (38-126) 10/06/18 15:07 Total Protein 6.3 g/dL (6.3-8.2) 10/06/18 15:07 Albumin 3.6 g/dL (3.5-5.0) 10/06/18 15:07 Lipase 129 IU/L (23-300) 10/06/18 15:07 Urine Color YELLOW 10/06/18 20:40 Urine Appearance CLEAR 10/06/18 20:40 Urine pH 6.0 (5.0-7.5) 10/06/18 20:40 Ur Specific [place] 1.010 (1.002-1.030) 10/06/18 20:40 Urine Protein NEGATIVE (NEGATIVE) 10/06/18 20:40 Urine Ketones 2+ (NEGATIVE) H 10/06/18 20:40 Urine Blood NEGATIVE (NEGATIVE) 10/06/18 20:40 Urine Nitrate NEGATIVE (NEGATIVE) 10/06/18 20:40 Urine Bilirubin NEGATIVE (NEGATIVE) 10/06/18 20:40 Urine Urobilinogen NEGATIVE EU (0.2-1.0) 10/06/18 20:40 Ur Leukocyte Esterase NEGATIVE (NEGATIVE) 10/06/18 20:40 Ur Random Creatinine 101.1 mg/dL 10/06/18 15:16 Ur Random Sodium 23 mEq/L (30-90) L 10/06/18 15:16 Urine Glucose NEGATIVE (NEGATIVE) 10/06/18 20:40 Patient is a 73-year-old male with long-standing history of GI complaints admitted for presumed acute renal insufficiency (kidney function was apparently normal in 2017) for which hematology was consulted for macrocytic anemia. Problem #1 - macrocytic anemia Patient's admission hemoglobin was 12.8 with an MCV of 100.5 the rest of his CBC was unremarkable reticulocyte count was low with a reticulocyte absolute number at 0.01. His CBC from 10/08/2018 is likely a poor sample/diluted. Etiology of anemia is likely anemia of renal insufficiency. Presumably has macrocytosis is related to 1 of his herbal supplements. He has a normal B12 and folate and is actively supplementing these he has a normal TSH. His peripheral blood smear is unremarkable. EPO level is pending. Patient would likely best be served by an outpatient visit once he is past his acute illness ( in ~ [address] June or myself) to reassess the need for sampling of the bone marrow. In the meantime I would recommend him stopping all of his supplements.
[2018-10-09] MEDS: LEVOTHYROXINE 75 MCG TAB PO SCH (05:14)
[2018-10-09] MEDS: HEPARIN 5,000 UNIT/0.5 ML INJ SC SCH (05:14)
[2018-10-09 08:42] VITALS: BP 126/78
[2018-10-09] MEDS: LIPASE 24,000/AMYLASE/PROTEASE (CREON) 1 CAP PO SCH ×2 (10:07→11:29)
[2018-10-09] MEDS: CHOLECALCIFEROL VIT D3 2,000 UNITS TAB/CAP PO SCH (10:16)
[2018-10-09] MEDS: PANTOPRAZOLE SODIUM 40 MG TAB PO SCH (10:16)
--- NOTE | 2018-10-09 11:15 | HOSPPROG ---
Hospitalist Progress Note Objective: Vital Signs Temp Pulse Resp BP Pulse Ox 36.2 C 58 L 14 126/78 H 97 10/09/18 08:00 10/09/18 08:00 10/09/18 08:00 10/09/18 08:00 10/09/18 08:00 Laboratory Results 10/08/18 04:38 10/08/18 04:46 10/08/18 10/09/18 10/10/18 05:59 05:59 05:59 Intake Total 1800 1335 Balance 1800 1335 ICD10 Worksheet Patient Problems: Problems Problem Status Onset Acute renal failure (ARF) Acute Dehydration Acute Early satiety Acute Ulcerative colitis Acute
--- NOTE | 2018-10-09 12:55 | PDDCSUM ---
Discharge Summary Discharge Summary: Date of Admission: 10/06/2018 Date of Discharge: 10/09/2018 Consultants: GI, hematology Studies/Procedures: CT abdomen, EGD, CT head, lower extremity doppler ultrasound Discharge Diagnoses: 1. Acute kidney injury 2. Subacute nausea, vomiting 3. Macrocytic anemia 4. Mild gastritis 5. Hypokalemia 6. Untreated IBD Brief Hospital Course: 73yo M with untreated inflammatory bowel disease (ulcerative jejunitis vs small bowel Crohn's disease and/or colitis) presented with 1 month of worsening nausea , vomiting, and epigastric pain. Found to have MARGARITA with creatinine of 2.3, previously normal in 2017. Urine studies consistent with prerenal state and his creatinine improved to 1.6 at time of discharge. His n/v and pain improved with correction of his mild uremia, making this a possible culprit for his symptoms. A CT of his abdomen did not show any etiology to his symptoms. Nonetheless, he did undergo upper endoscopy which showed mild gastritis. He was started on a PPI. Biopsies are pending. He is tolerating PO at time of discharge. Regarding his IBD, he has follow up with Dr Medina in less than a month to undergo colonoscopy. He is not on disease-modifying therapies. Regarding his anemia, hematology was consulted. This is mild. He is slightly macrocytic. B12 and folate replete. Hematology thinks that this is possibly related to the supplements he is taking and recommended discontinuing these. He is not really agreeable to stopping his supplements at this time. I did encourage him to continue a potassium supplement as his K was low. Medications: Please refer to EMR for complete list. I sent prescriptions for protonix and zofran to his pharmacy. Follow Up Plan: 1. Needs repeat BMP in 5-[address] Hodan Chopra 3. Dr June or Joshua in hematology clinic 4. Dr Medina in GI clinic for colonoscopy Physical Exam: Vitals reviewed, stable. Alert and oriented, rrr without m/r/g, lungs clear, abdomen soft and nontender, no hepatosplenomegaly, no rashes, no edema.
--- NOTE | 2018-10-09 13:40 | SOAPPROG ---
SOAP Progress Note Assessment/Plan: Assessment/Plan: Early satiety, nausea, weakness, with elevated Cr. Now, doing better. Of note, he does not necessarily have IBD (Crohn's, UC, etc.). In fact, he has had mostly a negative evaluation. Superficial jejunal ulcerations were found on enteroscopy many years ago, but felt to be possibly due to actonel or his overuse of supplements. Push enteroscopy now nl. Colon ten years ago negative. Noncontrast abd CT unremarkable. Rather, much of his chronic digestive symptoms might be functional only. - agree with d/c home - he has f/u and colonoscopy planned with Dr. Medina Thanks! 10/09/18 13:41 Subjective: cc: elevated Cr This is my first visit with this pt. Doing better, with less nausea, early satiety, weakness. Tolerating p.o. No rigors, chills. Objective: Vital Signs Temp Pulse Resp BP Pulse Ox 36.2 C 58 L 14 126/78 H 97 10/09/18 08:00 10/09/18 08:00 10/09/18 08:00 10/09/18 08:00 10/09/18 08:00 Laboratory Results 10/09/18 11:40 10/09/18 11:40 10/08/18 10/09/18 10/10/18 05:59 05:59 05:59 Intake Total 1800 1335 Balance [address] without acute findings Physical Exam - Physical Exam General Appearance: WD/WN, alert, no apparent distress EENT: PERRL/EOMI, normal ENT inspection, pharynx normal, TMs normal Neck: non-tender, full range of motion, supple, normal inspection Respiratory: chest non-tender, lungs clear, normal breath sounds Cardiac/Chest: normal peripheral pulses, regular rate, rhythm Peripheral Pulses: 2+: carotid (R), carotid (L), femoral (R), femoral (L), dorsalis-pedis (R), dorsalis-pedis (L) Abdomen: normal bowel sounds, non-tender, soft Male Genitalia: deferred Rectal: deferred Back: Normal inspection Skin: normal color, warm/dry Lymphatic: no adenopathy Extremities: normal range of motion, non-tender, normal inspection, normal capillary refill Neuro/Psych: no motor/sensory deficits, alert, normal mood/affect, oriented x 3 ICD10 Worksheet Patient Problems: Problems Problem Status Onset Acute renal failure (ARF) Acute Dehydration Acute Early satiety Acute Ulcerative colitis Acute
== END 2018-10-09 13:39 | disposition home or self-care (01) | DRG 684 ==
LOC: F3E 17:11 → EDSTATUS 18:00
PROVIDERS: ADMIT Internal Medicine; ATTEND Internal Medicine
DX: N17.9 Acute kidney failure, unspecified (principal); K29.70 Gastritis, unspecified, without bleeding; K52.3 Indeterminate colitis; E86.0 Dehydration; D53.9 Nutritional anemia, unspecified; E87.6 Hypokalemia; N40.1 Benign prostatic hyperplasia with lower urinary tract symptoms; M81.0 Age-related osteoporosis without current pathological fracture; E03.9 Hypothyroidism, unspecified; I25.10 Atherosclerotic heart disease of native coronary artery without angina pectoris
CPT/HCPCS: 82565-PO; 82668-90; 97161-GP; J1644; J2001; J2704; J3010; Q9967

== ENCOUNTER 2018-10-28 07:32 | Day surgery (SDC) | payer OTHER, MEDICARE ==
[2018-10-28] MEDS ORDERED: LR 1,000 ML IV ONE (08:03)
[2018-10-28] MEDS ORDERED: LIDOCAINE 1% 2 ML INJ ID PRN (08:03)
--- NOTE | 2018-10-28 08:18 | PDANEPAE ---
ANE History of Present Illness ABDOMINAL PAIN, anemia ANE Past Medical History - Cardiovascular History Hx Hypertension: No Hx Arrhythmias: No Hx Chest Pain: No Hx Coronary Artery / Peripheral Vascular Disease: No Hx CHF / Valvular Disease: No Hx Palpitations: No - Pulmonary History Hx COPD: No Hx Asthma/Reactive Airway Disease: No Hx Recent Upper Respiratory Infection: No Hx Oxygen in Use at Home: No Hx Sleep Apnea: Yes - Endocrine History Hx Diabetes: No Hypothyroid: Yes Hyperthyroid: No Obesity: no - Renal History Hx Renal Disorders: Yes Renal History Comment: MARGARITA secondary to malnourishment and chronic bowel disease - Liver History Hx Hepatic Disorders: No - GI History GERD: mild Hx Gastrointestinal Disorders: Yes Gastrointestinal History Comment: long standing inflammatory bowel disease treated with herbal supplements. recent MARGARITA, weight loss and satiety - Chronic Pain History Chronic Pain: No ANE Review of Systems Review of systems is: negative Review of Systems: ANE Patient History - Allergies Allergies/Adverse Reactions: wheat Allergy (Severe, Verified 10/06/18 18:20) Abdominal Cramping, diarrhea, nausea Milk Containing Products [dairy] Allergy (Intermediate, Verified 10/06/18 18:22) Abdominal Cramping onion Allergy (Intermediate, Verified 10/06/18 18:22) Abdominal Cramping tomato Allergy (Intermediate, Verified 10/06/18 18:21) Abdominal Cramping - Home Medications Home medications: home medication list seen and reviewed Home Medications: Acetaminophen [Tylenol 325mg (*)] 650 mg PO DAILY PRN 10/06/18 [Last Taken Unknown] Cholecalciferol Vit D3 [Vitamin D3 (*)] 10,000 units PO DAILY 10/06/18 [Last Taken 10/05/18] Compounded Cream 1 elie TP DAILY 10/06/18 [Last Taken 10/05/18] Cyanocobalamin [Vitamin B12 (*)] 5,000 mcg PO DAILY 10/06/18 [Last Taken ] Denosumab [Prolia] 60 mg SQ Q180D 10/06/18 [Last Taken Unknown] Dicyclomine [Bentyl 20 MG (*)] 20 mg PO DAILY PRN 10/06/18 [Last Taken Unknown] Herbals/Supplements -Info Only 1 ea PO DAILY 10/06/18 [Last Taken 10/05/18] Levothyroxine [Synthroid 75 mcg (*)] 75 mcg PO DAILY06 10/06/18 [Last Taken ] Lipase 24,000/Amylase/Protease [Creon 24 (*)] 1 cap PO 5XD 10/06/18 [Last Taken 10/04/18] Rapaflow 3 mg PO EVERY OTHER DAY 10/06/18 [Last Taken Unknown] metroNIDAZOLE 0.75% [Metrocream 0.75%] 1 elie TP EVERY OTHER DAY 10/06/18 [Last Taken Unknown] - NPO status NPO Status: no food or drink >8 hours - Anes Hx Anes Hx: no prior problems - Smoking Hx Smoking Status: Never smoked - Family Anes Hx Family Anes Hx: none ANE Physical Exam - Airway Neck exam: FROM Mallampati Score: Class 2 Mouth exam: normal dental/mouth exam - Pulmonary Pulmonary: no respiratory distress, clear to auscultation - Cardiovascular Cardiovascular: regular rate and rhythym, no murmur, rub, or gallop - ASA Status ASA Status: III ANE Anesthesia Plan Anesthesia Plan: GA with mask
[2018-10-28] MEDS ORDERED: PROPOFOL/EMULSION 500 MG/50 ML BOTTLE IV ONE (08:28)
[2018-10-28] MEDS ORDERED: LIDOCAINE 2% 2 ML INJ ONE ×2 (08:29)
[2018-10-28] MEDS ORDERED: ePHEDrine SULFATE 25 MG/5 ML SYR ONE (08:29)
--- NOTE | 2018-10-28 08:57 | PDGENHP ---
History & Physical Chief Complaint: diarrhea ,weight loss, anemia History of Present Illness: diarrhea, anemia Pertinent Past, Social, Family History: no tobacco, alcohol. no cc in family. question of ibd, celaic Relevant Physical Exam: a+ox3. CTA. S1S2. +BS, soft tendener no r/g Cardiorespiratory Assessment: class 3
[2018-10-28] MEDS ORDERED: NALOXONE HCL 0.4 MG/ML INJ IVP PRN (09:07)
--- NOTE | 2018-10-28 09:07 | POSTANESTH ---
Post Anesthetic Evaluation Cardiovascular Status: Normal, Stable Respiratory Status: Normal, Stable Level of Consciousness/Mental Status: Can Participate in Eval Pain Control: Adequate, Prn Tx Ordered Nausea/Vomiting Control: Adequate, Prn Tx Ordered Complications Possibly Related to Anesthesia: None Noted
--- NOTE | 2018-10-28 09:21 | PDANEPAE ---
ANE Past Medical History - Cardiovascular History Hx Hypertension: No Hx Arrhythmias: No Hx Chest Pain: No Hx Coronary Artery / Peripheral Vascular Disease: No - Pulmonary History Hx COPD: No Hx Oxygen in Use at Home: No Hx Sleep Apnea: Yes - Endocrine History Hx Diabetes: No - Renal History Hx Renal Disorders: Yes Renal History Comment: MARGARITA probanly secondary to malnourishment and chronic bowel disease - Liver History Hx Hepatic Disorders: No - GI History Hx Gastrointestinal Disorders: Yes Gastrointestinal History Comment: long standing inflammatory bowel disease treated with herbal supplements. recent MARGARITA, weight loss and satiety - Chronic Pain History Chronic Pain: No ANE Review of Systems Review of Systems: ANE Patient History - Allergies Allergies/Adverse Reactions: wheat Allergy (Severe, Verified 10/28/18 08:21) Abdominal Cramping, diarrhea, nausea Milk Containing Products [dairy] Allergy (Intermediate, Verified 10/28/18 08:21) Abdominal Cramping onion Allergy (Intermediate, Verified 10/28/18 08:21) Abdominal Cramping tomato Allergy (Intermediate, Verified 10/28/18 08:21) Abdominal Cramping - Home Medications Home Medications: Acetaminophen [Tylenol 325mg (*)] 650 mg PO DAILY PRN 10/06/18 [Last Taken Unknown] Cholecalciferol Vit D3 [Vitamin D3 (*)] 10,000 units PO DAILY 10/06/18 [Last Taken 10/05/18] Compounded Cream 1 elie TP DAILY 10/06/18 [Last Taken 10/05/18] Cyanocobalamin [Vitamin B12 (*)] 5,000 mcg PO DAILY 10/06/18 [Last Taken ] Denosumab [Prolia] 60 mg SQ Q180D 10/06/18 [Last Taken Unknown] Dicyclomine [Bentyl 20 MG (*)] 20 mg PO DAILY PRN 10/06/18 [Last Taken Unknown] Herbals/Supplements -Info Only 1 ea PO DAILY 10/06/18 [Last Taken 10/05/18] Levothyroxine [Synthroid 75 mcg (*)] 75 mcg PO DAILY06 10/06/18 [Last Taken ] Lipase 24,000/Amylase/Protease [Creon 24 (*)] 1 cap PO 5XD 10/06/18 [Last Taken 10/04/18] Rapaflow 3 mg PO EVERY OTHER DAY 10/06/18 [Last Taken Unknown] metroNIDAZOLE 0.75% [Metrocream 0.75%] 1 elie TP EVERY OTHER DAY 10/06/18 [Last Taken Unknown] - Smoking Hx Smoking Status: Never smoked
--- NOTE | 2018-10-28 10:43 | GIREPORT ---
[facility] - Endoscopy Department Patient Name: Stanley Owen Procedure Date: 10/28/2018 8:19 AM Patient Type: Outpatient Attending MD/ ER Physician: Prakash Medina MD Procedure: Colonoscopy Indications: Clinically significant diarrhea of unexplained origin, Unexplained iron deficiency anemia Providers: Prakash Medina MD Referring MD: Hodan Chopra MD Medicines: Propofol per Anesthesia Complications: No immediate complications. Estimated blood loss: Minimal. Description of Procedure: After obtaining informed consent, the scope was passed under direct vis ion. Throughout the procedure, the patient's blood pressure, pulse, and oxyg en saturations were monitored continuously. The Colonoscope with irrigatio n channel was introduced through the anus and advanced to the terminal il eum, with identification of the appendiceal orifice and IC valve. The colono scopy was performed without difficulty. The patient tolerated the procedure w ell. The quality of the bowel preparation was good. Findings: The digital rectal exam was normal. The terminal ileum appeared normal. A 3 mm polyp was found in the ascending colon. The polyp was sessile. T he polyp was removed with a piecemeal technique using a cold biopsy forcep s. Resection and retrieval were complete. Estimated blood loss was minimal . The proximal transverse colon, mid transverse colon, ascending colon an d cecum appeared normal. Biopsies were taken with a cold forceps for histology. Estimated blood loss was minimal. The rectum, sigmoid colon, descending colon and distal transverse colon appeared normal. Biopsies were taken with a cold forceps for histology. Estimated blood loss was minimal. The exam was otherwise without abnormality. Estimated Blood Loss: Estimated blood loss was minimal. Post Op Diagnosis: - The examined portion of the ileum was normal. - One 3 mm polyp in the ascending colon, removed piecemeal using a cold biopsy forceps. Resected and retrieved. - The proximal transverse colon, mid transverse colon, ascending colon and cecum are normal. Biopsied. - The rectum, sigmoid colon, descending colon and distal transverse col on are normal. Biopsied. - The examination was otherwise normal. Recommendation: - Await pathology results. - My office will call with the pathology result with 5-7 days. If you h ave not heard from my office by 12-14, do not assume the pathology is earnestine l, please call [phone] to get the pathology reults. - If the pathology report reveals adenomatous tissue, then repeat the colonoscopy for surveillance in 5 years. - If the pathology report reveals no adenomatous tissue, then repeat th e colonoscopy for screening purposes in 10 years. - Resume previous diet. - Patient has a contact number available for emergencies. The signs and symptoms of potential delayed complications were discussed with the pat ient. Return to normal activities tomorrow. Written discharge instructions we re provided to the patient. - Continue present medications. - To visualize the small bowel, perform video capsule endoscopy at appointment to be scheduled. - Return to GI clinic after studies are complete. - Return to primary care physician as previously scheduled. - Thank you for allowing me to help in your patient's care. Do not hesi emery to call with any questions. Attending Participation: I personally performed the entire procedure. Carol Ocasio M.D Prakash Medina MD 10/28/2018 10:42:58 AM This report has been signed electronicallyMattadonay Medina MD Number of Addenda: 0 Note Initiated On: 10/28/2018 8:19 AM Total Procedure Duration Time 0 hours 16 minutes 37 seconds [email or web address]
[2018-10-28 11:22] VITALS: BP 155/85
== END 2018-10-28 11:42 | disposition home or self-care (01) ==
LOC: FSGY 07:32
PROVIDERS: ATTEND Internal Medicine Gastroenterology
PROC: 0DBG8ZX Excision of Left Large Intestine, Via Natural or Artificial Opening Endoscopic, Diagnostic (ICD-10-PCS; principal; 2018-10-28 09:00)
PROC: 0DBF8ZX Excision of Right Large Intestine, Via Natural or Artificial Opening Endoscopic, Diagnostic (ICD-10-PCS; principal; 2018-10-28 09:00)
PROC: 0DBK8ZX Excision of Ascending Colon, Via Natural or Artificial Opening Endoscopic, Diagnostic (ICD-10-PCS; principal; 2018-10-28 09:00)
DX: R19.7 Diarrhea, unspecified (principal); R63.4 Abnormal weight loss; D50.9 Iron deficiency anemia, unspecified; D12.2 Benign neoplasm of ascending colon
CPT/HCPCS: J2704

== ENCOUNTER → 2018-12-02 | Outpatient (CLI) | payer OTHER, MEDICARE | LOC: FIMAGING 10:18 | PROVIDERS: ATTEND Internal Medicine Gastroenterology | DX: R10.13 Epigastric pain (principal) | CPT/HCPCS: 86301-90 ==

== ENCOUNTER → 2018-12-06 | Outpatient (CLI) | payer OTHER, MEDICARE | LOC: EMCIMAGING 09:08 | PROVIDERS: ATTEND Internal Medicine Gastroenterology | DX: D64.89 Other specified anemias (principal); N28.1 Cyst of kidney, acquired; I25.10 Atherosclerotic heart disease of native coronary artery without angina pectoris | CPT/HCPCS: 74177-PN; 82607-90; 82668-90; 82784-90; 84134-90; 86301-90 ==

== ENCOUNTER → 2019-02-09 | Outpatient (CLI) | payer OTHER, MEDICARE | LOC: FIMAGING 15:01 ==